=== PATIENT | male | born 1995 | race Native Hawaiian/Other Pacific Islander ===

== ENCOUNTER 2022-08-14 22:35 | Emergency (ER) | payer OTHER ==
[~2022-08-14] VITALS: Ht 170.2 cm; Wt 68.0 kg
[2022-08-14 23:30] LABS: PLATELET COUNT 275 K/uL (142-355)
[2022-08-14 23:39] LABS: POTASSIUM 3.9 mmol/L (3.6-5.2)
[2022-08-15 00:45] VITALS: BP 117/76; TEMP 98.2
== END 2022-08-15 00:45 | disposition home or self-care (01) ==
LOC: ED 22:35
PROVIDERS: Emergency Medicine
DX: K29.70 Gastritis, unspecified, without bleeding (principal)
CPT/HCPCS: 36415; 80053; 83690; 85027; 96361; 96374; 96375; 99284; J2405; J3490